=== PATIENT | female | born 1980 | race Two or more races ===

== ENCOUNTER 2020-07-17 18:56 | Inpatient (IN) | payer BC ==
--- NOTE | 2020-07-17 19:23 | ER Document Report ---
ED Medical Screen (RME) - General Chief Complaint: Leg Pain Stated Complaint: RIGHT LEG PAIN Time Seen by Provider: 07/17/20 19:18 - HPI Notes: 07/17/20 19:21 40-year-old female to the emergency department with complaints of progressively worsening right lower leg pain, redness, swelling since this past Friday. She states that it is gotten progressively worse. She states she is never had a clot in her leg but she is concerned for this. She states she feels a little short of breath but that because she feels anxious. She does admit that she is recently been traveling and driving from [place]. I performed a brief medical screening exam on the patient determined that the patient needs further evaluation and management by main side provider. I have placed initial orders to help expedite care. - Related Data Allergies/Adverse Reactions: Penicillins Allergy (Verified 07/06/12 15:53) Past Medical History Past Surgical History: Reports: Hx Cardiac Surgery Physical Exam - Vital signs Vitals: Temp Pulse Resp BP Pulse Ox 99.0 F 112 H 20 198/131 H 96 07/17/20 19:00 07/17/20 19:00 07/17/20 19:00 07/17/20 19:00 07/17/20 19:00 Course - Vital Signs Vital signs: Temp Pulse Resp BP Pulse Ox 99.0 F 112 H 20 198/131 H 96 07/17/20 19:00 07/17/20 19:00 07/17/20 19:00 07/17/20 19:00 07/17/20 19:00
[2020-07-17 20:03] LABS: ABSOLUTE BASOPHILS # (AUTO) 0.1 10^3/uL (0.0-0.2); ABSOLUTE EOSINOPHILS # (AUTO) 0.1 10^3/uL (0.0-0.6); ABSOLUTE LYMPHOCYTES (AUTO) 0.9 10^3/uL (0.5-4.7); ABSOLUTE MONOCYTES (AUTO) 0.4 10^3/uL (0.1-1.4); ABSOLUTE NEUT (AUTO) 5.9 10^3/uL (1.7-8.2); BASOPHILS % (AUTO) 0.8 % (0-2); EOSINOPHILS % (AUTO) 1.4 % (0-6); HEMATOCRIT 52.6 % (36.0-47.0); HEMOGLOBIN 17.1 g/dL (12.0-15.5); MEAN CORPUSCULAR HEMOGLOBIN 29.3 pg (27.0-33.4); MEAN CORPUSCULAR HGB CONC 32.5 g/dL (32.0-36.0); MEAN CORPUSCULAR VOLUME 90 fl (80-97); MONOCYTES % (AUTO) 5.5 % (3-13); PLATELET COUNT 143 10^3/uL (150-450); RED BLOOD COUNT 5.86 10^6/uL (3.72-5.28); RED CELL DISTRIBUTION WIDTH 16.8 % (11.5-14.0); SEGMENTED NEUTROPHILS % (AUTO) 80.3 % (42-78); TOTAL CELLS COUNTED % (AUTO) 100 %; WHITE BLOOD COUNT 7.4 10^3/uL (4.0-10.5)
[2020-07-17 20:10] LABS: ALBUMIN 3.6 g/dL (3.5-5.0); ALKALINE PHOSPHATASE 83 U/L (38-126); ANION GAP 9 (5-19); ASPARTATE AMINO TRANSFERASE 25 U/L (14-36); BILIRUBIN,DIRECT 0.9 mg/dL (0.0-0.4); BILIRUBIN,TOTAL 2.4 mg/dL (0.2-1.3); BLOOD UREA NITROGEN 7 mg/dL (7-20); CALCIUM 9.2 mg/dL (8.4-10.2); CARBON DIOXIDE 29 mmol/L (22-30); CHLORIDE 99 mmol/L (98-107); GLUCOSE 143 mg/dL (75-110); TOTAL PROTEIN 6.6 g/dL (6.3-8.2)
[2020-07-17 20:33] LABS: ANISOCYTOSIS 1+; PLATELET COMMENT DECREASED; PLATELET LARGE PRESENT; POLYCHROMASIA 1+
--- NOTE | 2020-07-17 20:42 | ER Document Report ---
ED General - General Chief Complaint: Leg Swelling Stated Complaint: RIGHT LEG PAIN Time Seen by Provider: 07/17/20 19:18 Mode of Arrival: Ambulatory Information source: Patient - HPI Notes: Patient is a 40-year-old female with no medical history who presents for right lower leg swelling began 3 days ago. Patient states the swelling began the day after she drove 7.5 hours as she was coming home from a trip to [place], [place]. Patient reports pain to her right lower leg and describes it as cramping and tingling which is worst at her posterior calf. Patient reports SOB, chest discomfort, and anxiety but denies cough, hemoptysis, fever and chills. Patient has no past hx of DVT or PE. She does not take hormone medications. She does not take any daily medication except vitamins. Patient is a former smoker but quit 6 years ago and she denies alcohol use. - Related Data Allergies/Adverse Reactions: Penicillins Allergy (Verified 07/17/20 20:13) Past Medical History - General Information source: Patient - Social History Smoking Status: Former Smoker Frequency of alcohol use: None Family History: Reviewed & Not Pertinent - Medical History Medical History: Negative Past Surgical History: Reports: Hx Cardiac Surgery Review of Systems - Review of Systems Constitutional: No symptoms reported EENT: No symptoms reported Cardiovascular: No symptoms reported Respiratory: See HPI Gastrointestinal: No symptoms reported Genitourinary: No symptoms reported Female Genitourinary: No symptoms reported Musculoskeletal: See HPI Skin: No symptoms reported Hematologic/Lymphatic: No symptoms reported Neurological/Psychological: No symptoms reported Physical Exam - Vital signs Vitals: Temp Pulse Resp BP Pulse Ox 99.0 F 112 H 20 198/131 H 96 07/17/20 19:00 07/17/20 19:00 07/17/20 19:00 07/17/20 19:00 07/17/20 19:00 - Notes Notes: PHYSICAL EXAMINATION: GENERAL: Well-appearing, non-toxic appearing female in no acute distress. HEAD: Atraumatic, normocephalic. EYES: Pupils equal round and reactive to light, extraocular movements intact, sclera anicteric, conjunctiva are normal. ENT: nares patent, oropharynx clear without exudates. Moist mucous membranes. NECK: Normal range of motion, supple without lymphadenopathy LUNGS: Breath sounds clear to auscultation bilaterally and equal. No wheezes, rales, or rhonchi. HEART: Mildly tachycardic with regular rhythm without murmurs. ABDOMEN: Soft, nontender, normoactive bowel sounds. No guarding, no rebound. No masses appreciated. EXTREMITIES: Non-pitting edema to right lower extremity with erythema and diffuse tenderness. Normal range of motion. No cyanosis. Palpable DP and PT pulses bilaterally. NEUROLOGICAL: No focal neurological deficits. Moves all extremities spontaneously and on command. PSYCH: Normal mood, normal affect. SKIN: Warm, Dry, normal turgor, no rashes or lesions noted. Course - Re-evaluation Re-evalutation: Patient is a 40 y/o female who present with right lower leg pain, swelling and SOB with a hx of recent travel. She has no prior hx of DVT or PE. Lungs CTA bilaterally and significant swelling to the RLE noted on exam. Patient mildly tachycardic, hypertensive and hypoxic in 80s. 4L of O2 give via nasal canula. 07/17/20 21:31 Per nursing, Troponin of 0.051 resulted. CTA has been completed. Doppler US still pending. 07/17/20 21:38 Doppler US of RLE + for DVT extending from distal superficial femoral vein to popliteal and into posterior tibial. Lovenox protocol started, PT/INR and PTT ordered. Awaiting CTA Chest report. 07/17/20 21:50 Discussed US results with patient. She states she denies MOREJON. She became tearful and states being in the hospital makes her anxious. 07/17/20 22:26 CTA Chest shows bilateral PE without right heart strain and cor pulmonale. Discussed CT results with patient. She continues to endorse anxiety and blood pressure of 172/112. Ativan 0.5mg PO ordered. Patient denies chest pain, and headache and shows no signs of hypertensive emergency. Based on her bilateral PE, need for supplemental oxygen, and lack of PCP patient, I will proceed with admission. 07/17/20 22:[address] Rossi, hospitalist who accepted the patient for a full admission to telemetry. Venous Doppler Study 07/17/20 19:21 IMPRESSION: Acute occlusive deep venous thrombosis is identified extending from distal superficial femoral vein to popliteal and into posterior tibial.. Chest/Abdomen CTA 07/17/20 20:31 IMPRESSION: 1. Patient is positive for bilateral PE. [id number] severity greater on the right side. No evidence for enlarged main pulmonary artery or saddle embolus. No evidence for right heart strain. No suspicious pulmonary infarction. 2. Normal aorta. Left cardiomegaly. 3. Nonspecific small to borderline size mediastinal lymph nodes. Statistically more likely reactive. 4. Evaluation of the lungs demonstrates what is perceived represent mosaic perfusion. This can be secondary to PE. This can be secondary to air trapping. Not uncommon in obese patients who cannot take a deep breath. There is no overt true groundglass process typically seen with viral pneumonitis. There is minimal left bronchial wall thickening. 5. Fatty liver. 07/17/20 22:46 07/17/20 22:48 - Vital Signs Vital signs: Temp Pulse Resp BP Pulse Ox 98.0 F 97 15 170/99 H 95 07/18/20 01:30 07/18/20 01:30 07/18/20 01:30 07/18/20 01:30 07/18/20 01:30 - Laboratory Result Diagrams: 07/17/20 19:35 07/17/20 19:35 Laboratory results interpreted by me: 07/17/20 07/17/20 19:35 19:35 RBC 5.86 H Hgb 17.1 H Hct 52.6 H RDW 16.8 H Plt Count 143 L Lymph % (Auto) 12.0 L Seg Neutrophils % 80.3 H Glucose 143 H Total Bilirubin 2.4 H Direct Bilirubin 0.9 H - Diagnostic Test Radiology reviewed: Reports reviewed - EKG Interpretation by Me Additional EKG results interpreted by me: Sinus rhythm with a rate of 97. QTc 468. Borderline right axis deviation. No T wave inversion or ST segment changes in consecutive leads. Discharge - Discharge Clinical Impression: Shortness of breath, Right leg pain Pulmonary embolism Qualifiers: Pulmonary embolism type: other Chronicity: acute Acute cor pulmonale presence: without acute cor pulmonale Qualified Code(s): I26.99 - Other pulmonary embolism without acute cor pulmonale DVT (deep venous thrombosis) Qualifiers: DVT location: lower extremity Affected thrombotic vein of extremity: other l ower extremity vein Chronicity: acute Laterality: right Qualified Code(s): I82.491 - Acute embolism and thrombosis of other specified deep vein of right lower extremity Condition: Stable Disposition: ADMITTED INPATIENT Admitting Provider: [place] (Hospitalist) Unit Admitted: Telemetry
--- NOTE | 2020-07-17 21:55 | RADIOLOGY REPORT (SQ) ---
EXAM DESCRIPTION: CT CHEST ANGIOGRAPHY WITHOUT THEN WITH IV CONTRAST COMPLETED DATE/TME: 07/17/2020 20:31 CLINICAL HISTORY: 40 years, Female, SOB, rule out PE COMPARISON: None. TECHNIQUE: Axial images with 100 mL of Omnipaque 350. MIP reconstruction. Images stored on PACS. All CT scanners at this facility use dose modulation, iterative reconstruction, and/or weight based dosing when appropriate to reduce radiation dose to as low as reasonably achievable (ALARA). FINDINGS: Normal size main pulmonary artery without central clot. Mild to moderate severity bilateral PE greater on the right lower lobe compared to the left L3 involves the right upper lobe. No evidence for right heart strain. Mild left cardiomegaly. Aorta is unremarkable. There is a borderline retrocaval lymph node 11 mm in transverse diameter. Smaller lymph nodes in the right azygos esophageal region and left anterior mediastinum. No evidence for pericardial effusion. Evaluation of the lungs demonstrates very subtle groundglass opacities in the dependent portions of the lower lobes. Review of the coronal and sagittal images suggest that these are more likely related to mosaic perfusion and less likely represent true groundglass opacities. No obvious infiltrate or pulmonary infarction. Very minimal bronchial wall thickening in the left lower lobe. No evidence for pleural disease. Limited images of the upper abdomen demonstrate suspected at least mild fatty liver. Mild splenomegaly. IMPRESSION: 1. Patient is positive for bilateral PE. Cekg-xi-plegdiku severity greater on the right side. No evidence for enlarged main pulmonary artery or saddle embolus. No evidence for right heart strain. No suspicious pulmonary infarction. 2. Normal aorta. Left cardiomegaly. 3. Nonspecific small to borderline size mediastinal lymph nodes. Statistically more likely reactive. 4. Evaluation of the lungs demonstrates what is perceived represent mosaic perfusion. This can be secondary to PE. This can be secondary to air trapping. Not uncommon in obese patients who cannot take a deep breath. There is no overt true groundglass process typically seen with viral pneumonitis. There is minimal left bronchial wall thickening. 5. Fatty liver.
[2020-07-17] MEDS ORDERED: ENOXAPARIN SODIUM INJ 150 MG/1 ML DISP.SYRIN SUBCUT SCH (22:00)
[2020-07-17 22:03] LABS: INTERNATIONAL RATION (INR) 1.02; PROTHROMBIN TIME 13.6 SEC (11.4-15.4)
[2020-07-17 22:04] LABS: PARTIAL THROMBOPLASTIN TIME 34.3 SEC (23.5-35.8)
[2020-07-17] MEDS ORDERED: LORAZEPAM 0.5 MG TABLET PO ONE (22:17)
--- NOTE | 2020-07-17 22:38 | RADIOLOGY REPORT (SQ) ---
INDICATION: right lower leg swelling, redness, pain. PROCEDURE: Real-time grayscale, color, and pulse Doppler ultrasound imaging of the right lower extremity deep venous system was performed. 36 images. COMPARISON: None FINDINGS: Right: The common femoral vein is patent. Occlusive deep venous thrombosis identified of the distal superficial femoral vein extending into popliteal. The visualized portion of the posterior tibial vein is also occluded. The remainder of the veins of the calf are not well seen. Subcutaneous edema. Contralateral common femoral vein is patent IMPRESSION: Acute occlusive deep venous thrombosis is identified extending from distal superficial femoral vein to popliteal and into posterior tibial..
[2020-07-18] MEDS ORDERED: MAG HYDROX/AL HYDROX/SIMETH SUSP 30 ML UDCUP PO PRN (00:52)
[2020-07-18] MEDS ORDERED: PROMETHAZINE HCL INJ 25 MG/1 ML VIAL IV PRN (00:52)
[2020-07-18] MEDS ORDERED: MAGNESIUM HYDROXIDE SUSP 30 ML UDCUP PO PRN (00:52)
[2020-07-18] MEDS ORDERED: MORPHINE SULFATE 10 MG/ML INJ IV PRN ×4 (01:11→01:33)
[2020-07-18] MEDS ORDERED: GUAIFENESIN SYRP 200 MG/10 ML UDC PO PRN (01:11)
[2020-07-18] MEDS ORDERED: MELATONIN 5 MG TABLET PO PRN (01:11)
[2020-07-18] MEDS ORDERED: LORAZEPAM INJ 2 MG/1 ML VIAL IV PRN (01:11)
[2020-07-18] MEDS ORDERED: HYDRALAZINE HCL INJ/PF 20 MG/1 ML SDV IV PRN (01:11)
[2020-07-18] MEDS ORDERED: METOPROLOL TARTRATE PF/INJ 5 MG/5 ML SDV IV PRN (01:11)
--- NOTE | 2020-07-18 02:59 | PDOC H&P ---
History of Present Illness Admission Date/PCP: 07/17/20 22:46 No local PCP Patient complains of: Right lower leg swelling and pain History of Present Illness: WANDER SCHOFIELD is a 40 year old female who presented to the emergency room with a 3-day history of right lower leg swelling and pain. She admits moderate right lower extremity swelling which began last Friday after driving 7-1/2 hours back from [place]. The swelling of the right lower extremity has now become severe and is accompanied by cramping "like a charley horse" pain of moderate to severe intensity primarily centered around her right posterior calf. Her leg pain is worsened by weightbearing and walking. She also admits associated mild dyspnea with dull generalized chest discomfort and an accompanying general sense of anxiety. She has not identified any additional associated or accompanying signs and symptoms. She denies prior similar episodes. She has not identified any additional aggravating or ameliorating factors for her right lower leg swelling and pain. In the emergency room she was found to have DVTs involving the right lower extremity and was also noted to have bilateral small pulmonary emboli on CTA of the chest. She was started on Lovenox therapy and admitted to the hospital for further evaluation and treatment. Past Medical History Cardiac Medical History: Denies: Coronary Artery Disease, Hyperlipidema, Hypertension Pulmonary Medical History: Denies: Asthma, Chronic Obstructive Pulmonary Disease (COPD), Sleep Apnea EENT Medical History: Denies: Cataracts, Ears - Needs Neurological Medical History: Denies: Hemorrhagic CVA, Ischemic CVA, Multiple Sclerosis, Seizures Endocrine Medical History: Reports: Obesity Denies: Diabetes Mellitus Type 1, Diabetes Mellitus Type 2, Hyperthyroidism, Hypothyroidism Renal/ Medical History: Denies: Chronic Kidney Disease, Nephrolithiasis Malignancy Medical History: Reports: None GI Medical History: Denies: Cirrhosis, Hepatitis, Peptic Ulcer Disease Musculoskeltal Medical History: Denies: Arthritis, Fibromyalgia, Gout Skin Medical History: Denies: Eczema, Psoriasis Psychiatric Medical History: Denies: Alcohol Dependency, Substance Abuse, Tobacco Dependency Traumatic Medical History: Reports: None Hematology: Denies: Anemia, Bleeding Tendencies Infectious Medical History: Reports: None Past Surgical History Past Surgical History: Reports: Section, Other - Left salpingectomy for ectopic Social History Information Source: Patient Lives with: Alone Smoking Status: Former Smoker Electronic Cigarette use?: No Frequency of Alcohol Use: Occasional Hx Recreational Drug Use: No Drugs: None Hx Prescription Drug Abuse: No - Advance Directive Resuscitation Status: Full Code Surrogate healthcare decision maker:: Jaimie Holly Family History Family History: Hypertension. denies: CAD, DM, Malignancy Parental Family History Reviewed: Yes Children Family History Reviewed: No Sibling(s) Family History Reviewed.: Yes Medication/Allergy Home Medications: No Home Medications 07/17/20 Allergies/Adverse Reactions: Penicillins Allergy (Verified 07/17/20 20:13) Review of Systems Constitutional: ABSENT: chills, fever(s) Eyes: ABSENT: visual disturbances, other - IP Ears: ABSENT: hearing changes, other - Ear pain Nose, Mouth, and Throat: ABSENT: headache(s), sore throat Cardiovascular: PRESENT: as per HPI, chest pain, edema - Painful swelling of the right lower extremity. ABSENT: palpitations Respiratory: PRESENT: dyspnea. ABSENT: cough, hemoptysis Gastrointestinal: ABSENT: abdominal pain, constipation, diarrhea, nausea, vomiting Genitourinary: ABSENT: dysuria, hematuria Musculoskeletal: ABSENT: back pain, joint swelling Integumentary: ABSENT: pruritus, rash Neurological: ABSENT: confusion, convulsions, focal weakness, memory loss, syncope Psychiatric: PRESENT: anxiety. ABSENT: depression Endocrine: ABSENT: cold intolerance, heat intolerance Hematologic/Lymphatic: ABSENT: easy bleeding, easy bruising Allergic/Immunologic: ABSENT: seasonal rhinorrhea Physical Exam Vital Signs: Temp Pulse Resp BP Pulse Ox 99.0 F 112 H 18 165/108 H 92 07/17/20 19:00 07/17/20 19:00 07/17/20 23:32 07/17/20 23:32 07/17/20 23:32 Intake & Output 07/15/20 07/16/20 07/17/20 23:59 23:59 23:59 Weight 151.6 kg General appearance: PRESENT: no acute distress, cooperative, morbidly obese Head exam: PRESENT: atraumatic, normocephalic Eye exam: PRESENT: conjunctiva pink. ABSENT: conjunctival injection, scleral icterus Ear exam: PRESENT: normal external ear exam. ABSENT: bleeding, drainage Mouth exam: PRESENT: dry mucosa, neck supple Neck exam: ABSENT: thyromegaly, tracheal deviation Respiratory exam: PRESENT: clear to auscultation ilir, symmetrical, unlabored Cardiovascular exam: PRESENT: RRR. ABSENT: clicks, gallop, rubs Pulses: PRESENT: normal carotid pulses, normal radial pulses Vascular exam: PRESENT: normal capillary refill. ABSENT: pallor GI/Abdominal exam: PRESENT: normal bowel sounds, soft. ABSENT: tenderness Rectal exam: PRESENT: deferred Extremities exam: PRESENT: tenderness - Tender right lower extremity below the knee with mild erythema and edema.. ABSENT: joint swelling Musculoskeletal exam: ABSENT: deformity, dislocation Neurological exam: PRESENT: alert, oriented to person, oriented to place, oriented to time, oriented to situation, CN II-XII grossly intact. ABSENT: motor sensory deficit Psychiatric exam: PRESENT: appropriate affect, normal mood Skin exam: PRESENT: dry, intact, warm. ABSENT: jaundice, rash, urticaria Results Laboratory Results: 07/17/20 19:35 07/17/20 19:35 07/17/20 07/17/20 07/17/20 19:35 19:35 19:35 WBC 7.4 RBC 5.86 H Hgb 17.1 H Hct 52.6 H MCV 90 MCH 29.3 MCHC 32.5 RDW 16.8 H Plt Count 143 L Seg Neutrophils % 80.3 H Sodium 137.4 Potassium 4.0 Chloride 99 Carbon Dioxide 29 Anion Gap 9 BUN 7 Creatinine 0.64 Est GFR ( Amer) > 60 Glucose 143 H Calcium 9.2 Total Bilirubin 2.4 H AST 25 Alkaline Phosphatase 83 Total Protein 6.6 Albumin 3.6 Serum HCG, Qual NEGATIVE 07/17/20 19:35 Troponin I 0.051 Impressions: Venous Doppler Study 07/17/20 19:21 IMPRESSION: Acute occlusive deep venous thrombosis is identified extending from distal superficial femoral vein to popliteal and into posterior tibial.. Chest/Abdomen CTA 07/17/20 20:31 IMPRESSION: 1. Patient is positive for bilateral PE. Imuc-no-ijbujnoy severity greater on the right side. No evidence for enlarged main pulmonary artery or saddle embolus. No evidence for right heart strain. No suspicious pulmonary infarction. 2. Normal aorta. Left cardiomegaly. 3. Nonspecific small to borderline size mediastinal lymph nodes. Statistically more likely reactive. 4. Evaluation of the lungs demonstrates what is perceived represent mosaic perfusion. This can be secondary to PE. This can be secondary to air trapping. Not uncommon in obese patients who cannot take a deep breath. There is no overt true groundglass process typically seen with viral pneumonitis. There is minimal left bronchial wall thickening. 5. Fatty liver. Assessment and Plan - Diagnosis (1) Bilateral pulmonary embolism Is this a current diagnosis for this admission?: Yes (2) Acute respiratory failure with hypoxia Is this a current diagnosis for this admission?: Yes (3) Deep vein thrombosis of right lower extremity Qualifiers: Chronicity: acute Is this a current diagnosis for this admission?: Yes (4) Hypertension Qualifiers: Hypertension type: unspecified Qualified Code(s): I10 - Essential (primary) hypertension Is this a current diagnosis for this admission?: Yes (5) Morbid obesity Is this a current diagnosis for this admission?: Yes - Plan Summary Summary: Patient will be admitted to the medical floor on telemetry, where she will receive continued supportive and symptomatic cares. She will be treated with Lovenox 150 mg subcu every 12 hours. She will receive supplemental oxygen as needed to maintain an adequate oxygen saturation level. Serial cardiac enzymes will be obtained. She will be placed on a cardiac diet. She will use Ativan 1 mg IV every 4 hours as needed for anxiety. She will use morphine sulfate 2 to 4 mg IV every 2 hours as needed for pain. A registered dietitian consultation will be obtained to aid the patient for weight loss and discuss dietary changes needed for DVT therapy. CBCs, metabolic profiles and additional laboratory and/or radiographic evaluations will be obtained as needed. - Time Time Spent with patient: 15-24 minutes Medications reviewed and adjusted accordingly: No - No home meds Anticipated Discharge Disposition: Home, Self Care Anticipated Discharge Timeframe: Undetermined - Inpatient Certification Based on my medical assessment, after consideration of the patient's comorbidities, presenting symptoms, or acuity I expect that the services needed warrant INPATIENT care.: Yes I certify that my determination is in accordance with my understanding of Medicare's requirements for reasonable and necessary INPATIENT services [42 CFR 412.3e].: Yes Medical Necessity: Significant Comorbidiites Make Outpatient Treatment Too Risky, Need Close Monitoring Due to Risk of Patient Decompensation, Need For Continuous Telemetry Monitoring, Need for Pain Control, Risk of Complication if Not Cared For in Hospital
--- NOTE | 2020-07-18 08:45 | EKG REPORT ---
SEVERITY:- BORDERLINE ECG - SINUS RHYTHM PROBABLE LEFT ATRIAL ABNORMALITY RIGHT AXIS DEVIATION : Confirmed by: Tony Le MD 18-Jul-2020 08:45:15
[2020-07-18] MEDS ORDERED: ENOXAPARIN SODIUM INJ 150 MG/1 ML DISP.SYRIN SUBCUT SCH (10:00)
[2020-07-18] MEDS: FAMOTIDINE 20 MG TABLET PO SCH ×2 (10:41→22:24)
[2020-07-18] MEDS: DOCUSATE SODIUM 100 MG CAPSULE PO SCH ×2 (10:41→18:25)
[2020-07-18] MEDS: ENOXAPARIN SODIUM INJ 150 MG/1 ML DISP.SYRIN SUBCUT SCH ×2 (10:42→22:24)
[2020-07-18] MEDS: ACETAMINOPHEN 325 MG TABLET PO PRN ×2 (10:47→18:27)
--- NOTE | 2020-07-18 12:31 | PDOC PROGRESS REPORT ---
Subjective Progress Note for:: 07/18/20 Subjective:: Patient still having some throbbing pain in her right lower extremity. Not feeling significantly short of breath at this time. Denies any chest pain. She has never had blood clots before. Denies family history of blood clots Reason For Visit: BILATERAL PULMONARY EMBOLI,DVTS RIGHT LOWER Physical Exam Vital Signs: Temp Pulse Resp BP Pulse Ox 98.1 F 92 16 132/76 H 90 L 07/18/20 07:49 07/18/20 07:49 07/18/20 07:49 07/18/20 07:49 07/18/20 07:49 Intake & Output 07/17/20 07/18/20 07/19/20 06:59 06:59 06:59 Output Total 0 Balance 0 Weight 143.6 kg General appearance: PRESENT: no acute distress, cooperative, morbidly obese. ABSENT: disheveled, hard of hearing Neck exam: ABSENT: JVD Respiratory exam: PRESENT: clear to auscultation ilir, symmetrical, unlabored. ABSENT: tachypnea, wheezes Cardiovascular exam: PRESENT: RRR, +S1, +S2. ABSENT: tachycardia GI/Abdominal exam: PRESENT: soft. ABSENT: rebound, rigid, tenderness Neurological exam: PRESENT: alert, awake, oriented to person, oriented to place, oriented to time Psychiatric exam: ABSENT: agitated, anxious Results Laboratory Results: 07/17/20 19:35 07/17/20 19:35 07/17/20 07/17/20 07/17/20 19:35 19:35 19:35 WBC 7.4 RBC 5.86 H Hgb 17.1 H Hct 52.6 H MCV 90 MCH 29.3 MCHC 32.5 RDW 16.8 H Plt Count 143 L Seg Neutrophils % 80.3 H Sodium 137.4 Potassium 4.0 Chloride 99 Carbon Dioxide 29 Anion Gap 9 BUN 7 Creatinine 0.64 Est GFR ( Amer) > 60 Glucose 143 H Calcium 9.2 Total Bilirubin 2.4 H AST 25 Alkaline Phosphatase 83 Total Protein 6.6 Albumin 3.6 Serum HCG, Qual NEGATIVE 07/17/20 07/18/20 07/18/20 19:35 01:23 08:04 Troponin I 0.051 0.053 0.046 Impressions: Venous Doppler Study 07/17/20 19:21 IMPRESSION: Acute occlusive deep venous thrombosis is identified extending from distal superficial femoral vein to popliteal and into posterior tibial.. Chest/Abdomen CTA 07/17/20 20:31 IMPRESSION: 1. Patient is positive for bilateral PE. Hjgv-fv-camvycca severity greater on the right side. No evidence for enlarged main pulmonary artery or saddle embolus. No evidence for right heart strain. No suspicious pulmonary infarction. 2. Normal aorta. Left cardiomegaly. 3. Nonspecific small to borderline size mediastinal lymph nodes. Statistically more likely reactive. 4. Evaluation of the lungs demonstrates what is perceived represent mosaic perfusion. This can be secondary to PE. This can be secondary to air trapping. Not uncommon in obese patients who cannot take a deep breath. There is no overt true groundglass process typically seen with viral pneumonitis. There is minimal left bronchial wall thickening. 5. Fatty liver. Assessment and Plan - Diagnosis (1) Bilateral pulmonary embolism Is this a current diagnosis for this admission?: Yes Plan: CTA chest image and result reviewed. Shows bilateral pulmonary embolism moderate severity Continue Lovenox therapeutic dose for now. We will plan to convert to oral anticoagulation in 1 or 2 days. Seems her PE was provoked by recent long drive to [place] which took [address] No evidence of right heart strain/RV dysfunction on CT and EKG. Troponin is mildly elevated likely due to the PE. Hemodynamically stable. (2) Acute respiratory failure with hypoxia Is this a current diagnosis for this admission?: Yes Plan: Secondary to acute pulmonary embolism. Requiring 3 L nasal cannula. We will monitor to see if any improvement in oxygen requirements in the next day. If still on oxygen tomorrow, patient will likely need to be sent home on home [facility] as the PE burden is going to be a gradual process in terms of improvement I will likely occur over the next several weeks. (3) Deep vein thrombosis of right lower extremity Qualifiers: Chronicity: acute Is this a current diagnosis for this admission?: Yes Plan: Anticoagulation as above (4) Hypertension Qualifiers: Hypertension type: unspecified Qualified Code(s): I10 - Essential (primary) hypertension Is this a current diagnosis for this admission?: Yes Plan: Noted elevation in blood pressure upon presentation. She did tell me she was very anxious when she came in and he was in a lot of pain. If her blood pressure goes back up, we will start her on antihypertensive medications. (5) Morbid obesity Is this a current diagnosis for this admission?: Yes Plan: Check hemoglobin A1c and TSH - Time Time Spent with patient: 15-24 minutes Anticipated Discharge Disposition: Home, Self Care Anticipated Discharge Timeframe: within 48 hours
[2020-07-18] MEDS: KETOROLAC TROMETHAMINE INJ/PF 30 MG/1 ML SDV IV PRN (22:22)
--- NOTE | 2020-07-19 00:13 | CDI QUERY ---
CDI Query CDI Review: Documentation in the Medical Record indicates this patient has: Height: 5 ft 1 in Weight: 143.6kg (315.92 lbs) Calculated BMI: 59.69 kg/m2 The following is also documented in the Medical Record (if pertinent to diagnoses) Per H&P: Morbid Obeisty A registered dietitian consultation will be obtained to aid the patient for weight loss and discuss dietary changes needed for DVT therapy Based on your medical judgement, can you further clarify in the Progress Notes the diagnosis associated with these findings. Documentation of the patients BMI supports the diagnosis of weight status. Morbid Obesity / BMI 59.69 kg/m2 Overweight / BMI 59.69 kg/m2 Obesity / BMI 59.69 kg/m2 Other condition (please specify) None of the above / Not applicable Thank you for your consideration. HAMMAD ArreolaN RN Clinical Historiography Teacher Physician Advisor
[2020-07-19 05:18] LABS: HEMATOCRIT 51.2 % (36.0-47.0); HEMOGLOBIN 16.5 g/dL (12.0-15.5); MEAN CORPUSCULAR HEMOGLOBIN 29.4 pg (27.0-33.4); MEAN CORPUSCULAR HGB CONC 32.2 g/dL (32.0-36.0); MEAN CORPUSCULAR VOLUME 91 fl (80-97); PLATELET COUNT 139 10^3/uL (150-450); RED BLOOD COUNT 5.62 10^6/uL (3.72-5.28); RED CELL DISTRIBUTION WIDTH 16.5 % (11.5-14.0); WHITE BLOOD COUNT 5.3 10^3/uL (4.0-10.5)
[2020-07-19 05:41] LABS: ANION GAP 7 (5-19); BLOOD UREA NITROGEN 8 mg/dL (7-20); CALCIUM 8.9 mg/dL (8.4-10.2); CARBON DIOXIDE 32 mmol/L (22-30); CHLORIDE 98 mmol/L (98-107); GLUCOSE 106 mg/dL (75-110); POTASSIUM 4.7 mmol/L (3.6-5.0)
[2020-07-19] MEDS: ACETAMINOPHEN 325 MG TABLET PO PRN (08:13)
[2020-07-19] MEDS: DOCUSATE SODIUM 100 MG CAPSULE PO SCH (11:15)
[2020-07-19] MEDS: FAMOTIDINE 20 MG TABLET PO SCH (11:15)
[2020-07-19] MEDS: ENOXAPARIN SODIUM INJ 150 MG/1 ML DISP.SYRIN SUBCUT SCH (11:15)
--- NOTE | 2020-07-19 12:57 | PDOC DISCHARGE SUMMARY ---
Impression - Admit/DC Date/PCP Admission Date/Primary Care Provider: 07/17/20 22:46 Discharge Date: 07/19/20 - Discharge Diagnosis (1) Bilateral pulmonary embolism Is this a current diagnosis for this admission?: Yes (2) Acute respiratory failure with hypoxia Is this a current diagnosis for this admission?: Yes (3) Deep vein thrombosis of right lower extremity Is this a current diagnosis for this admission?: Yes (4) Hypertension Is this a current diagnosis for this admission?: Yes (5) Morbid obesity with BMI of 60.0-69.9, adult Is this a current diagnosis for this admission?: Yes - Additional Information Resuscitation Status: Full Code Discharge Diet: Diabetic Discharge Activity: Energy Conservation, Slowly Increase Activity Prescriptions: Apixaban [Eliquis 5 mg Tablet] See Protocol PO BID 37 Days tablet RX: Lisinopril 20 mg PO DAILY #30 tablet Home Medications: Apixaban [Eliquis 5 mg Tablet] See Protocol PO BID 37 Days tablet 07/19/20 RX: Lisinopril 20 mg PO DAILY #30 tablet 07/19/20 History of Present Illiness History of Present Illness: According to admitting provider: WANDER SCHOFIELD is a 40 year old female who presented to the emergency room with a 3-day history of right lower leg swelling and pain. She admits moderate right lower extremity swelling which began last Friday after driving 7-1/2 hours back from [place]. The swelling of the right lower extremity has now become severe and is accompanied by cramping "like a ch jordan horse" pain of moderate to severe intensity primarily centered around her right posterior calf. Her leg pain is worsened by weightbearing and walking. She also admits associated mild dyspnea with dull generalized chest discomfort and an accompanying general sense of anxiety. She has not identified any additional associated or accompanying signs and symptoms. She denies prior similar episodes. She has not identified any additional aggravating or ameliorating factors for her right lower leg swelling and pain. In the emergency room she was found to have DVTs involving the right lower extremity and was also noted to have bilateral small pulmonary emboli on CTA of the chest. She was started on Lovenox therapy and admitted to the hospital for further evaluation and treatment. Hospital Course Hospital Course: Patient was admitted to the hospital for shortness of breath and chest pain. She also had right lower extremity swelling and pain. Venous Doppler and CTA of the chest reviewed right lower extremity DVT and bilateral pulmonary embolism respectively. There was no evidence of pulmonary hypertension or right heart strain pattern noted on EKG nor on CT imaging. She did have mild troponin leak secondary to a PE. She was also noted to be in hypoxic respiratory failure secondary to her pulmonary embolism. However she was completely hemodynamically stable and feels comfortable at rest. Chest pain and shortness of breath have resolved. However she is still requiring oxygen. She was initiated on therapeutic Lovenox. Ambulatory pulse ox as well as resting pulse ox have determined that she will require 3 to 4 L nasal cannula especially 4 L nasal cannula on ambulation of short distances for treatment of her respiratory fa ilmatt as I hypoxia is going to take a few weeks to improve as her pulmonary embolism will improve over the next several weeks with treatment and not immediately. I have called the [facility] and have sent his prescriptions for Eliquis 10 mg twice daily for 7 days then 5 mg twice daily subsequently. Have instructed patient to follow-up with hematology and primary care provider for further care and refills as outpatient. I will also encourage patient to buy a pulse oximeter at home to monitor oxygen levels and restrain from any strenuous or prolonged activity. Anticipate that with completion of treatment of pulmonary embolism, patient will be eventually able to be weaned off oxygen. Patient also noted to be hypertensive and has been started on lisinopril. Hemoglobin A1c was 6.8. She will need a second repeat testing of a hemoglobin A1c to establish the diagnosis of diabetes mellitus likely type II. In the meantime, diabetes education performed and I have counseled patient on the importance of weight loss and lifestyle modifications for management of what is likely new onset diabetes. Will refrain from initiating any anti-glycemic medications at this time. Patient discharged in stable conditions. Physical Exam Vital Signs: Temp Pulse Resp BP Pulse Ox 97.7 F 86 20 155/93 H 94 07/19/20 10:57 07/19/20 10:57 07/19/20 10:57 07/19/20 10:57 07/19/20 10:57 Intake & Output 07/18/20 07/19/20 07/20/20 06:59 06:59 06:59 Intake Total 1072 Output Total 0 Balance 0 1072 Weight 143.6 kg 148.2 kg 148.2 kg General appearance: PRESENT: no acute distress, cooperative Neck exam: ABSENT: JVD Respiratory exam: PRESENT: clear to auscultation ilir, unlabored. ABSENT: crackles, wheezes Cardiovascular exam: PRESENT: RRR, +S1, +S2. ABSENT: tachycardia GI/Abdominal exam: PRESENT: soft. ABSENT: rebound, rigid, tenderness Extremities exam: PRESENT: +1 edema - RLE Musculoskeletal exam: PRESENT: ambulatory Neurological exam: PRESENT: alert, awake, oriented to person, oriented to place, oriented to time Psychiatric exam: ABSENT: agitated, anxious Results Laboratory Results: WBC 5.3 10^3/uL (4.0-10.5) 07/19/20 04:16 RBC 5.62 10^6/uL (3.72-5.28) H 07/19/20 04:16 Hgb 16.5 g/dL (12.0-15.5) H 07/19/20 04:16 Hct 51.2 % (36.0-47.0) H 07/19/20 04:16 MCV 91 fl (80-97) 07/19/20 04:16 MCH 29.4 pg (27.0-33.4) 07/19/20 04:16 MCHC 32.2 g/dL (32.0-36.0) 07/19/20 04:16 RDW 16.5 % (11.5-14.0) H 07/19/20 04:16 Plt Count 139 10^3/uL (150-450) L 07/19/20 04:16 Lymph % (Auto) 12.0 % (13-45) L 07/17/20 19:35 [place] % (Auto) 5.5 % (3-13) 07/17/20 19:35 Eos % (Auto) 1.4 % (0-6) 07/17/20 19:35 Baso % (Auto) 0.8 % (0-2) 07/17/20 19:35 Absolute Neuts (auto) 5.9 10^3/uL (1.7-8.2) 07/17/20 19:35 Absolute Lymphs (auto) 0.9 10^3/uL (0.5-4.7) 07/17/20 19:35 Absolute Monos (auto) 0.4 10^3/uL (0.1-1.4) 07/17/20 19:35 Absolute Eos (auto) 0.1 10^3/uL (0.0-0.6) 07/17/20 19:35 Absolute Basos (auto) 0.1 10^3/uL (0.0-0.2) 07/17/20 19:35 Seg Neutrophils % 80.3 % (42-78) H 07/17/20 19:35 Large Platelets PRESENT 07/17/20 19:35 Platelet Comment DECREASED 07/17/20 19:35 Polychromasia 1+ 07/17/20 19:35 Anisocytosis 1+ 07/17/20 19:35 PT 13.6 SEC (11.4-15.4) 07/17/20 19:35 INR 1.02 07/17/20 19:35 APTT 34.3 SEC (23.5-35.8) 07/17/20 19:35 Sodium 137.1 mmol/L (137-145) 07/19/20 04:16 Potassium 4.7 mmol/L (3.6-5.0) 07/19/20 04:16 Chloride 98 mmol/L (98-107) 07/19/20 04:16 Carbon Dioxide 32 mmol/L (22-30) H 07/19/20 04:16 Anion Gap 7 (5-19) 07/19/20 04:16 BUN 8 mg/dL (7-20) 07/19/20 04:16 Creatinine 0.62 mg/dL (0.52-1.25) 07/19/20 04:16 Est GFR ( Amer) > 60 (>60) 07/19/20 04:16 Est GFR (MDRD) Non-Af > 60 (>60) 07/19/20 04:16 Glucose 106 mg/dL (75-110) 07/19/20 04:16 Hemoglobin A1c % 6.8 % (4.7-6.0) H 07/19/20 04:16 Calcium 8.9 mg/dL (8.4-10.2) 07/19/20 04:16 Magnesium 2.1 mg/dL (1.6-2.3) 07/19/20 04:16 Total Bilirubin 2.4 mg/dL (0.2-1.3) H 07/17/20 19:35 Direct Bilirubin 0.9 mg/dL (0.0-0.4) H 07/17/20 19:35 Neonat Total Bilirubin Not Reportable 07/17/20 19:35 Neonat Direct Bilirubin Not Reportable 07/17/20 19:35 Neonat Indirect Bili Not Reportable 07/17/20 19:35 AST 25 U/L (14-36) 07/17/20 19:35 ALT 13 U/L (<35) 07/17/20 19:35 Alkaline Phosphatase 83 U/L (38-126) 07/17/20 19:35 Troponin I 0.039 ng/mL 07/18/20 15:20 Total Protein 6.6 g/dL (6.3-8.2) 07/17/20 19:35 Albumin 3.6 g/dL (3.5-5.0) 07/17/20 19:35 TSH 3.52 uIU/mL (0.47-4.68) 07/19/20 04:16 Serum HCG, Qual NEGATIVE (NEGATIVE) 07/17/20 19:35 07/17/20 07/18/20 07/18/20 19:35 01:23 08:04 Troponin I 0.051 0.053 0.046 07/18/20 15:20 Troponin I 0.039 Impressions: Venous Doppler Study 07/17/20 19:21 IMPRESSION: Acute occlusive deep venous thrombosis is identified extending from distal superficial femoral vein to popliteal and into posterior tibial.. Chest/Abdomen CTA 07/17/20 20:31 IMPRESSION: 1. Patient is positive for bilateral PE. Lmcj-nh-vbdxyddw severity greater on the right side. No evidence for enlarged main pulmonary artery or saddle embolus. No evidence for right heart strain. No suspicious pulmonary infarction. 2. Normal aorta. Left cardiomegaly. 3. Nonspecific small to borderline size mediastinal lymph nodes. Statistically more likely reactive. 4. Evaluation of the lungs demonstrates what is perceived represent mosaic perfusion. This can be secondary to PE. This can be secondary to air trapping. Not uncommon in obese patients who cannot take a deep breath. There is no overt true groundglass process typically seen with viral pneumonitis. There is minimal left bronchial wall thickening. 5. Fatty liver. Plan Time Spent: Greater than 30 Minutes Stroke Is this a Stroke Patient?: No Acute Heart Failure - Is this a Heart Failure Patient?: No
[2020-07-19] MEDS: KETOROLAC TROMETHAMINE INJ/PF 30 MG/1 ML SDV IV PRN (19:25)
[2020-07-19 20:32] VITALS: BP 156/90
== END 2020-07-19 21:13 | disposition home or self-care (01) | DRG 299 ==
LOC: ER 18:56 → EH 22:46 → 4N 07-18 01:50
PROVIDERS: ADMIT Emergency Medicine; ATTEND Internal Medicine
DX: I82.411 Acute embolism and thrombosis of right femoral vein (principal); I26.99 Other pulmonary embolism without acute cor pulmonale; J96.01 Acute respiratory failure with hypoxia; Z68.44 Body mass index [BMI] 60.0-69.9, adult; I82.431 Acute embolism and thrombosis of right popliteal vein; E66.01 Morbid (severe) obesity due to excess calories; I10 Essential (primary) hypertension; Z88.0 Allergy status to penicillin; Z87.891 Personal history of nicotine dependence; Z82.49 Family history of ischemic heart disease and other diseases of the circulatory system; Z83.3 Family history of diabetes mellitus
CPT/HCPCS: 36415; 71275; 80048; 80053; 83036; 83735; 84443; 84484; 84703; 85025; 85027; 85610; 85730; 93005; 93010; 93971; 96372; 99285; J1650; J1885; J2270; J3490

== ENCOUNTER 2020-09-23 14:23 | Emergency (ER) | payer BC ==
--- NOTE | 2020-09-23 14:44 | ER Document Report ---
ED Medical Screen (RME) - General Chief Complaint: Neck Swelling Stated Complaint: LUMP IN CHEST AND LEG Time Seen by Provider: 09/23/20 14:37 Mode of Arrival: Ambulatory Information source: Patient Notes: HPI; a 40-year-old female with a past medical history significant for bilateral PEs and right leg DVT diagnosed in July currently on Eliquis presents to the emergency room complaining of pain and swelling with a painful lump to her right thigh along with shortness of breath and pain to her right collarbone area for the past 3 days. Denies any recent travel. Denies any trauma or injury. Not on oral contraceptives. Taking her Eliquis as prescribed. PE: Alert and oriented x3. Lungs: Clear to auscultation without rales, rhonchi, wheezes. Heart: Tachycardic without murmurs, rubs, gallops. Unable to do full assessment in triage. I have greeted and performed a rapid initial assessment of this patient. A comprehensive ED assessment and evaluation of the patient, analysis of test results and completion of the medical decision making process will be conducted by additional ED providers. I have specifically instructed the patient or family members with the patient to immediately return to any nursing staff should anything change in the patient's condition or with their chief complaint. TRAVEL OUTSIDE OF THE [place] IN LAST 30 DAYS: No - Related Data Allergies/Adverse Reactions: Penicillins Allergy (Verified 07/17/20 20:13) Home Medications: eliquis, lisinporil, HCTZ, metformin Past Medical History - Social History Frequency of alcohol use: None Drug Abuse: None - Past Medical History Cardiac Medical History: Denies: Hx Coronary Artery Disease, Hx Hypercholesterolemia, Hx Hypertension Pulmonary Medical History: Denies: Hx Asthma, Hx COPD, Hx Sleep Apnea Neurological Medical History: Denies: Hx Seizures Endocrine Medical History: Denies: Hx Diabetes Mellitus Type 1, Hx Diabetes Mellitus Type 2, Hx Hyperthyroidism, Hx Hypothyroidism GI Medical History: Denies: Hx Cirrhosis, Hx Hepatitis Musculoskeltal Medical History: Denies Hx Arthritis, Denies Hx Fibromyalgia, Denies Hx Gout Skin Medical History: Denies Hx Eczema, Denies Hx Psoriasis Psychiatric Medical History: Denies: Hx Depression Infectious Medical History: Denies: Hx Hepatitis Past Surgical History: Reports: Hx Cardiac Surgery, Hx Section, Other - Left salpingectomy for ectopic Physical Exam - Vital signs Vitals: Temp Pulse Resp BP Pulse Ox 99.0 F 102 H 18 121/78 95 09/23/20 14:33 09/23/20 14:33 09/23/20 14:33 09/23/20 14:33 09/23/20 14:33 Course - Vital Signs Vital signs: Temp Pulse Resp BP Pulse Ox 99.0 F 102 H 18 121/78 95 09/23/20 14:33 09/23/20 14:33 09/23/20 14:33 09/23/20 14:33 09/23/20 14:33
[2020-09-23 15:50] LABS: ABSOLUTE BASOPHILS # (AUTO) 0.1 10^3/uL (0.0-0.2); ABSOLUTE EOSINOPHILS # (AUTO) 0.2 10^3/uL (0.0-0.6); ABSOLUTE LYMPHOCYTES (AUTO) 1.2 10^3/uL (0.5-4.7); ABSOLUTE MONOCYTES (AUTO) 0.6 10^3/uL (0.1-1.4); ABSOLUTE NEUT (AUTO) 5.6 10^3/uL (1.7-8.2); BASOPHILS % (AUTO) 0.8 % (0-2); EOSINOPHILS % (AUTO) 2.5 % (0-6); HEMATOCRIT 41.6 % (36.0-47.0); LYMPHOCYTES % (AUTO) 16.2 % (13-45); MEAN CORPUSCULAR HEMOGLOBIN 29.2 pg (27.0-33.4); MEAN CORPUSCULAR HGB CONC 33.6 g/dL (32.0-36.0); MEAN CORPUSCULAR VOLUME 87 fl (80-97); PLATELET COUNT 251 10^3/uL (150-450); RED BLOOD COUNT 4.79 10^6/uL (3.72-5.28); RED CELL DISTRIBUTION WIDTH 14.9 % (11.5-14.0); SEGMENTED NEUTROPHILS % (AUTO) 72.5 % (42-78); TOTAL CELLS COUNTED % (AUTO) 100 %; WHITE BLOOD COUNT 7.7 10^3/uL (4.0-10.5)
[2020-09-23 15:57] LABS: INTERNATIONAL RATION (INR) 1.17; PROTHROMBIN TIME 15.1 SEC (11.4-15.4)
[2020-09-23 15:58] LABS: ALBUMIN 4.4 g/dL (3.5-5.0); ALKALINE PHOSPHATASE 98 U/L (38-126); ANION GAP 11 (5-19); ASPARTATE AMINO TRANSFERASE 25 U/L (14-36); BILIRUBIN,DIRECT 0.3 mg/dL (0.0-0.4); BILIRUBIN,TOTAL 0.8 mg/dL (0.2-1.3); BLOOD UREA NITROGEN 31 mg/dL (7-20); CALCIUM 10.1 mg/dL (8.4-10.2); CARBON DIOXIDE 26 mmol/L (22-30); CHLORIDE 99 mmol/L (98-107); GLUCOSE 108 mg/dL (75-110); POTASSIUM 5.1 mmol/L (3.6-5.0)
[2020-09-23] MEDS ORDERED: NORMAL SALINE 1000 ML 1,000 ML IV ONE (16:16)
--- NOTE | 2020-09-23 16:22 | RADIOLOGY REPORT (SQ) ---
EXAM DESCRIPTION: VENOUS UNILATERAL LOWER IMAGES COMPLETED DATE/TIME: 09/23/2020 2:55 pm REASON FOR STUDY: pain/swelling/hx of dvt. COMPARISON: None. TECHNIQUE: Dynamic and static camara scale and color images acquired of the right leg venous system. S elected spectral images acquired with additional compression and augmentation maneuvers. The contrala teral common femoral vein and saphenofemoral junction were also imaged. Images stored on PACS. LIMITATIONS: None. FINDINGS: COMMON FEMORAL: Normal phasicity, compression and augmentation. No visualized echogenic ma terial on camara scale. No defects on color images. FEMORAL: Normal compression and augmentation. No visualized echogenic material on camara scale. No defe cts on color images. POPLITEAL: Normal compression, augmentation. No visualized echogenic material on camara scale. No defec ts on color images. CALF VESSELS: Normal compression, augmentation. No visualized echogenic material on camara scale. No de fects on color images. GSV and SSV: Normal compression, augmentation. No visualized echogenic material on camara scale. No def ects on color images. ANY DEEP VENOUS INSUFFICIENCY: Not evaluated. ANY EVIDENCE OF POPLITEAL CYST: No. OTHER: No other significant finding. CONTRALATERAL COMMON FEMORAL VEIN AND SAPHENOFEMORAL JUNCTION: Normal phasicity, compression and augmentation. No visualized echogenic material on camara scale. No de fects on color images. IMPRESSION: NO EVIDENCE OF DVT OR SVT IN THE RIGHT LEG. TECHNICAL DOCUMENTATION: JOB ID: [id number] [employer]- All Rights Reserved Reading location - IP/workstation name: [email or web address]
--- NOTE | 2020-09-23 17:20 | ER Document Report ---
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 She complains of a feeling of a lump on the right clavicle area and neck as well as an area of pain on the lateral aspect of her right thigh. She is concerned that she may have a recurrence of the DVT and or the PE. Patient recently returned to work at [employer] and complains of pain in the right shoulder and clavicle region. She also complains of discomfort in the right lateral thigh. She denies any known injury, fall or prior history of similar episodes. She is taking the Eliquis and states that she has not missed any dosages. TRAVEL OUTSIDE OF THE [place] IN LAST 30 DAYS: No - Related Data Allergies/Adverse Reactions: Penicillins Allergy (Verified 07/17/20 20:13) Home Medications: eliquis, lisinporil, HCTZ, metformin Past Medical History - General Information source: Patient - Social History Smoking Status: Never Smoker Frequency of alcohol use: None Drug Abuse: None Family History: Reviewed & Not Pertinent - Past Medical History Cardiac Medical History: Denies: Hx Coronary Artery Disease, Hx Hypercholesterolemia, Hx Hypertension Pulmonary Medical History: Denies: Hx Asthma, Hx COPD, Hx Sleep Apnea Neurological Medical History: Denies: Hx Seizures Endocrine Medical History: Denies: Hx Diabetes Mellitus Type 1, Hx Diabetes Mellitus Type 2, Hx Hyperthyroidism, Hx Hypothyroidism GI Medical History: Denies: Hx Cirrhosis, Hx Hepatitis Musculoskeletal Medical History: Denies Hx Arthritis, Denies Hx Fibromyalgia, Denies Hx Gout Skin Medical History: Denies Hx Eczema, Denies Hx Psoriasis Psychiatric Medical History: Denies: Hx Depression Infectious Medical History: Denies: Hx Hepatitis Past Surgical History: Reports: Hx Cardiac Surgery, Hx Section, Other - Left salpingectomy for ectopic Review of Systems - Review of Systems Notes: Constitutional: Negative for fever. HENT: Negative for sore throat. Eyes: Negative for visual changes. Cardiovascular: Negative for chest pain. Respiratory: Negative for shortness of breath. Gastrointestinal: Negative for abdominal pain, vomiting or diarrhea. Genitourinary: Negative for dysuria. Musculoskeletal: See HPI Skin: Negative for rash. Neurological: Negative for headaches, weakness or numbness. 10 point ROS negative except as marked above and in HPI. Physical Exam - Vital signs Vitals: Temp Pulse Resp BP Pulse Ox 99.0 F 102 H 18 121/78 95 09/23/20 14:33 09/23/20 14:33 09/23/20 14:33 09/23/20 14:33 09/23/20 14:33 - Notes Notes: PHYSICAL EXAMINATION: Physical Exam: General: Overweight 40-year-old woman in no acute distress HEENT: NC/AT, pupils equal round and reactive to light, MM moist,nares clear, oropharynx clear, airway patent Neck: supple, no adenopathy, no masses. Good range of motion Lungs: clear, no wheezing, no rales no rhonchi CVS: Regular rate and rhythm no murmur gallop or rub Abdomen: Soft, active, nontender, no masses, no hepatosplenomegaly Ext: Tenderness in the right shoulder and right clavicle region, no deformity, no crepitus, right lateral thigh with mild tenderness, no deformity, no bruising. Tenderness over the tensor fascia lorin Neuro: Alert and responsive, moving all 4 extremities on command, cranial nerves intact, no focal findings Skin: Intact no open lesions, no rash Course - Re-evaluation Re-evalutation: 09/23/20 19:27 Patient is seen and evaluated in the emergency department for possible DVT and or pulmonary embolus. She is taking the Eliquis as prescribed complains of some exertional shortness of breath and pain in the right thigh area. Since Doppler of the right lower extremity is negative for DVT. A PE study was performed and no acute pulmonary embolus was noted. I discussed with the patient her symptoms and she relates to return to work and increased symptoms. He is presently using Tylenol for pain. - Vital Signs Vital signs: Temp Pulse Resp BP Pulse Ox 99.0 F 102 H 11 L 112/57 L 100 09/23/20 14:33 09/23/20 14:33 09/23/20 17:59 09/23/20 18:00 09/23/20 18:00 - Laboratory Result Diagrams: 09/23/20 15:19 09/23/20 15:19 Laboratory results interpreted by me: 09/23/20 09/23/20 15:19 15:19 RDW 14.9 H Sodium 135.8 L Potassium 5.1 H BUN 31 H Creatinine 1.43 H Est GFR ( Amer) 49 L Est GFR (MDRD) Non-Af 40 L - Diagnostic Test Radiology reviewed: Image reviewed, Reports reviewed Radiology results interpreted by me: 09/23/20 19:30 Chest/Abdomen CTA 09/23/20 14:41 IMPRESSION: Mild diffuse ground-glass attenuation in both lungs, which can be seen with pulmonary edema. No focal consolidation. Moderate cardiomegaly. Venous Doppler Study 09/23/20 14:41 IMPRESSION: NO EVIDENCE OF DVT OR SVT IN THE RIGHT LEG. Discharge - Discharge Clinical Impression: Neck pain on right side, Shortness of breath, Morbid obesity Right shoulder pain Qualifiers: Chronicity: unspecified Qualified Code(s): M25.511 - Pain in right shoulder Condition: Good Disposition: HOME, SELF-CARE Instructions: Myofascial Pain ([facility]) Additional Instructions: You were seen in the emergency department today with pain in your shoulder, right clavicle region and shortness of breath. A Doppler was performed and was negative for DVT, CT of the chest was negative for pulmonary embolus. Please continue Tylenol for pain, using a cold compress to the area may also be useful in pain management. If your symptoms are worsening or if you have other concerns you may return to the emergency department for further evaluation and treatment HOME CARE INSTRUCTIONS & INFORMATION: Thank you for choosing us for your medical needs. We hope you're satisfied with the care you received. After you leave, you must properly care for your problem and, at the same time, observe its progress. Any condition can change. Some illnesses can change rapidly over hours or days. If your condition worsens, return to the Emergency Department or see your physician promptly. ABOUT YOUR X-RAYS AND EKG'S: If you had an EKG or X-rays taken, they have been read by the Emergency Physician. The X-rays and EKG's will also be read by a Radiologist or Test Bore Helper within 24 hours. If discrepancies are noted, you will be notified by telephone. Please be certain the ED has a correct telephone number & address where you can be reached. Also, realize that some fractures or abnormalities do not show up on initial X-rays. If your symptoms continue, see your physician. ABOUT YOUR LABORATORY TEST: If you had laboratory tests, the results have been reviewed by the Emergency Physician. Some test results (for example cultures) may not be available for several days. You will be contacted if any test result shows you need additional treatment. Please be certain the ED has a correct telephone number and address where you can be reached. ABOUT YOUR MEDICATIONS: You will receive instructions on how to take your medicine on the prescription label you receive. Additional information may be provided by the Pharmacy. If you have questions afterwards, call the ED for clarification or further instructions. Some prescribed medications may cause drowsiness. Do not perform tasks such as driving a car or operating machinery without consulting your Pharmacist. If you feel you need a refill of pain medication, your condition will need re-evaluation. Please do not call for a refill of any medication. ABOUT YOUR SIGNATURE: Signature of this document acknowledges to followin. Understanding that you received emergency treatment and that you may be released before al medical problems are known or treated. Please be certain the ED has a correct phone number & address where you can be reached. 2. Acknowledgement that you will arrange for follow-up care as recommended. 3. Authorization for the Emergency Physician to provide information to your follow-up Physician in order to maximize your care. AT ANY TIME, IF YOUR SYMPTOMS CHANGE SIGNIFICANTLY OR WORSEN OR YOU DEVELOP NEW SYMPTOMS, RETURN TO THE EMERGENCY DEPARTMENT IMMEDIATELY FOR RE-EVALUATION. OUR GOAL IS TO PROVIDE EXCELLENT MEDICAL CARE! WE HOPE THAT WE HAVE MET YOUR EXPECTATIONS DURING YOUR EMERGENCY DEPARTMENT VISIT AND THAT YOU FEEL YOU HAVE RECEIVED EXCELLENT CARE! Forms: Return to Work Referrals: NAT MAYNARD MD [Primary Care Provider] - Follow up as needed
--- NOTE | 2020-09-23 18:01 | RADIOLOGY REPORT (SQ) ---
EXAM DESCRIPTION: CTA CHEST IMAGES COMPLETED DATE/TIME: 09/23/2020 4:36 pm REASON FOR STUDY: hx of PE, lumps on thigh COMPARISON: 07/17/2020 TECHNIQUE: CT scan of the chest performed using helical scanning technique with dynamic intravenous contrast injection. Images reviewed with lung, soft tissue and bone windows. Reconstructed coronal and sagittal MPR images reviewed. Additional 3 dimensional post-processing performed to develop Maximal Intensity Projection images (OK P). All images stored on PACS. All CT scanners at this facility use dose modulation, iterative reconstruction, and/or weight based d osing when appropriate to reduce radiation dose to as low as reasonably achievable (ALARA). [facility]: Dose Right [facility]: CareDose [facility]: Dose Right [facility]: Teradose 4D [facility]: [employer] CONTRAST TYPE AND DOSE: contrast/concentration: Isovue 350.00 mmol/ml; Total Contrast Delivered: 85. 0 ml; Total Saline Delivered: 59.0 ml Contrast bolus optimized for the pulmonary arteries. Not diagnostic for the aorta. RENAL FUNCTION: GFR > 60. RADIATION DOSE: CT Rad equipment meets quality standard of care and radiation dose reduction techniq ues were employed. CTDIvol: 24.8 - 38.8 mGy. DLP: 1168 mGy-cm. . LIMITATIONS: None. FINDINGS: LUNGS AND PLEURA: Trachea has normal caliber and appearance. No bronchial wall thickening or bronchiectasis. Mild diffuse ground-glass attenuation in both lungs. No focal consolidation. N o suspicious ground-glass attenuation. No pleural effusion or pneumothorax. AORTA AND GREAT VESSELS: No aneurysm. Contrast bolus not optimized for the aorta. HEART: Moderate cardiomegaly. No pericardial effusion. No significant coronary artery calcifications . PULMONARY ARTERIES: No emboli visualized in the main pulmonary arteries or the segmental branches. HILAR AND MEDIASTINAL STRUCTURES: No identified masses or abnormal nodes. HARDWARE: None in the chest. UPPER ABDOMEN: No significant findings. Limited exam. THYROID AND OTHER SOFT TISSUES: No masses. No adenopathy. BONES: No acute or significant finding. 3D MIPS: Confirm above findings. OTHER: No other significant finding. IMPRESSION: Mild diffuse ground-glass attenuation in both lungs, which can be seen with pulmonary ed kevin. No focal consolidation. Moderate cardiomegaly. COMMENT: Quality ID # [id number]: Final reports with documentation of one or more dose reduction techniques (e.g., Automated exposure control, adjustment of the mA and/or kV according to patient size, use of iterative reconstruction technique) TECHNICAL DOCUMENTATION: JOB ID: [id number] 2010 [employer]- All Rights Reserved Reading location - IP/workstation name: [email or web address]
[2020-09-23 19:28] VITALS: BP 112/67
== END 2020-09-23 19:46 | disposition home or self-care (01) ==
LOC: ER 14:23
DX: M54.2 Cervicalgia (principal); R06.02 Shortness of breath; M25.511 Pain in right shoulder; E66.01 Morbid (severe) obesity due to excess calories; R22.1 Localized swelling, mass and lump, neck; R22.2 Localized swelling, mass and lump, trunk; M79.651 Pain in right thigh; Z68.43 Body mass index [BMI] 50.0-59.9, adult; Z86.718 Personal history of other venous thrombosis and embolism; Z88.0 Allergy status to penicillin; Z79.01 Long term (current) use of anticoagulants; Z79.899 Other long term (current) drug therapy; Z79.84 Long term (current) use of oral hypoglycemic drugs
CPT/HCPCS: 99285; 96360; 36415; 84703; 85025; 85610; 80053; 93971; 71275; J7030